=== PATIENT | female | born 1945 | race Caucasian/White ===

== ENCOUNTER 2018-09-10 06:43 | Outpatient (CLI) | payer MEDICARE ==
[2018-09-10 14:20] LABS: #Eosinphils 0.1 thou/uL (0.0-0.7); #Lymphocytes 1.7 thou/uL (1.20-3.40); #Monocytes 0.7 thou/uL (0.11-0.59); #Neutrophils 5.1 thou/uL (1.40-6.50); %Basophils 0.1 % (0.0-1.0); %Lymphocytes 22.4 % (21.0-51.0); %Neutrophils 67.5 % (42.0-75.0); Hemoglobin 14.3 g/dL (12.0-16.0); Mean Corpuscular HGB CONC 31.3 g/dL (32.0-36.0); Mean Corpuscular Hemoglobin 27.7 pg (27.0-31.0); Mean Corpuscular Volume 88.4 fL (78.0-98.0); Mean Platelet Volume 8.6 fL (7.4-10.4); Platelet Count 268 thou/uL (130-400); RBC Distribution Width 12.2 % (11.5-14.5); Red Blood Cell (RBC) Count 5.16 mill/uL (4.20-5.40); White Blood Cell (WBC) Count 7.5 thou/uL (4.8-10.8)
[2018-09-10 14:45] LABS: Anion Gap 11 mmol/L (10-20); BUN (Urea Nitrogen) 11 mg/dL (9.8-20.1); Calc. Creatinine Clearance 0 mL/min (70-130); Calcium 9.7 mg/dL (7.8-10.44); Carbon Dioxide 28 mmol/L (23-31); Chloride 106 mmol/L (98-107); Estimated GFR-MDRD 70; Glucose 85 mg/dL (83-110); Potassium 4.3 mmol/L (3.5-5.1); Sodium 141 mmol/L (136-145)
[2018-09-10 15:10] LABS: Prothrombin Time 13.5 SEC (12.0-14.7)
--- NOTE | 2018-09-11 21:04 | EKG ---
Test Reason : Blood Pressure : / mmHG Vent. Rate : 064 BPM Atrial Rate : 064 BPM P-R Int : 184 ms QRS Dur : 092 ms QT Int : 396 ms P-R-T Axes : 063 080 024 degrees QTc Int : 408 ms Normal sinus rhythm Normal ECG No previous ECGs available Confirmed by Xin GEE ([id number]) on 09/11/2018 9:04:43 PM Referred By: SAMANTHA Confirmed By:Xin GEE
== END 2018-09-10 06:44 | disposition home or self-care (01) ==
LOC: LABBT 06:43
PROVIDERS: ATTEND Orthopaedic Surgery
DX: Z01.818 Encounter for other preprocedural examination (principal); M16.11 Unilateral primary osteoarthritis, right hip
CPT/HCPCS: 80048; 85025; 85610; 87081; 93005; 93010

== ENCOUNTER 2018-09-10 13:30 | Inpatient (IN) | payer MEDICARE ==
[2018-09-10 12:53] VITALS: BMI 38.7
[2018-09-22] MEDS ORDERED: Tranexamic Acid 1,000 MG/10 ML VIAL ONE (06:10)
[2018-09-22] MEDS ORDERED: CEFAZOLIN 2 GM/50 ML BAG ONE (06:10)
[2018-09-22] MEDS ORDERED: Sodium Chloride 0.9% 100 ML ONE (06:11)
[2018-09-22] MEDS ORDERED: Midazolam HCl 2 mg/2 ml Vial ONE (06:22)
[2018-09-22] MEDS ORDERED: Fentanyl 100 MCG/2 ML VIAL ONE (06:22)
[2018-09-22] MEDS ORDERED: Vancomycin HCl 1.5 GM in Sodium Chloride 0.9% 250 ML 300 ML IVPB SCH (06:30)
[2018-09-22] MEDS ORDERED: Ondansetron PF 4 MG/2 ML Vial IVP PRN ×2 (06:58→08:45)
[2018-09-22] MEDS ORDERED: Acetaminophen 325 MG TAB PO PRN (06:58)
[2018-09-22] MEDS ORDERED: diphenhydrAMINE 25 MG CAP PO PRN ×2 (06:58→08:45)
[2018-09-22] MEDS ORDERED: HYDROcodone/Acetaminophen 10/325 mg Tablet PO PRN ×2 (06:58)
[2018-09-22] MEDS ORDERED: Zolpidem Tartrate 5 MG TAB PO PRN ×2 (06:58→08:45)
[2018-09-22] MEDS ORDERED: Promethazine HCl 25 MG/ML VIAL IM PRN ×3 (06:58→08:45)
[2018-09-22] MEDS ORDERED: Promethazine HCl 25 MG/ML VIAL SLOW IVP PRN (07:53)
[2018-09-22] MEDS ORDERED: Ondansetron HCl/PF 4 MG/2 ML Vial IVP PRN (07:53)
[2018-09-22] MEDS ORDERED: Acetaminophen 1,000 MG in Premix Bag 1 BAG IVPB PRN (08:43)
[2018-09-22] MEDS ORDERED: Naloxone HCl 0.4 mg/ml Vial IV PRN (08:45)
[2018-09-22] MEDS ORDERED: Hydrocerin (Eucerin) Cream 120 gm Jar TOP PRN (08:45)
[2018-09-22] MEDS ORDERED: Naloxone HCl 0.4 mg/ml Vial IVP PRN (08:45)
[2018-09-22] MEDS ORDERED: HYDROcodone/Acetaminophen 5/325 mg Tablet PO PRN (08:45)
[2018-09-22] MEDS ORDERED: Bupivacaine 0.25% 10 ML VIAL EPIDURAL PRN (08:45)
[2018-09-22] MEDS ORDERED: traMADol HCl 50 MG TAB PO PRN (08:45)
[2018-09-22] MEDS ORDERED: diphenhydrAMINE 50 MG/ML VIAL IVP PRN (08:45)
[2018-09-22] MEDS ORDERED: diphenhydrAMINE 50 MG/ML VIAL IM PRN (08:45)
[2018-09-22] MEDS ORDERED: Promethazine HCl 25 MG SUPP PR PRN (08:45)
[2018-09-22] MEDS ORDERED: Fentanyl/Bupivacaine 100 ML EPIDURAL ONE (08:47)
[2018-09-22] MEDS ORDERED: Enoxaparin Sodium 40 MG/0.4 ML SYRINGE SC SCH (09:00)
--- NOTE | 2018-09-22 10:16 | RAD ---
RIGHT HIP TWO VIEWS: History: Status post total hip replacement. AP and cross table lateral portable views are performed. FINDINGS: No evidence for dislocation or periprosthetic fracture. IMPRESSION: Unremarkable recent post total right hip replacement change. POS: MAGNO
[2018-09-22] MEDS: CEFAZOLIN 2 GM/50 ML BAG IVPB SCH ×2 (14:11→21:22)
[2018-09-22] MEDS: Ferrous Gluconate 324 MG TAB PO SCH ×2 (14:12→21:19)
[2018-09-22] MEDS: Furosemide 20 MG TAB PO SCH (14:12)
[2018-09-22] MEDS: Multivitamin W/ Minerals 1 TAB PO SCH (14:12)
[2018-09-22] MEDS: Sodium Chloride 0.9% 1,000 ML IV SCH ×3 (14:13→21:23)
[2018-09-22] MEDS: Cholecalciferol (Vitamin D3) 400 UNITS TAB PO SCH (14:13)
[2018-09-22] MEDS: CeleCOXIB 100 MG CAP PO SCH (14:13)
[2018-09-22] MEDS: Allopurinol 100 MG TAB PO SCH (14:13)
[2018-09-22] MEDS: Senokot S 8.6-50 MG TAB PO SCH ×2 (14:16→21:19)
--- NOTE | 2018-09-22 15:12 | OP ---
DATE OF PROCEDURE: 09/22/2018 PREOPERATIVE DIAGNOSIS: Right hip degenerative joint disease. POSTOPERATIVE DIAGNOSIS: Right hip degenerative joint disease. PROCEDURE PERFORMED: Right total hip arthroplasty using a [place] Accolate 3 stem, -2.5 ceramic 36 head and a 48 mm PSL cup with an X3 36 mm liner. FOREST PATHOLOGIST: No post production assistant. BLOOD LOSS: 200. SPECIMEN: None. DRAINS: None. COMPLICATION: None. PROCEDURE IN DETAIL: After informed consent was obtained in the preoperative holding area, the patient was taken to the operative suite where general anesthesia was induced. The patient was then positioned in the lateral decubitus position. The hip was then prepped and draped in usual sterile fashion. The patient received preoperative antibiotics. Prior to incision, time-out was called and all members of the surgical team agreed upon site, surgeon, and patient. After this, a longitudinal incision was made directly over the trochanter, noted by palpation extending 2 fingerbreadths above and below the trochanter. The deeper subcutaneous layer was undermined with Bovie electrocautery. The iliotibial band was encountered and incised sharply and the plane below this was developed bluntly. A Charnley retractor was placed to hold this opened. The lateral aspect of the trochanter and the abductor muscles were encountered and then reflected anteriorly off the trochanter using Bovie electrocautery. Once this was completed, the anterior capsule was then encountered and identified and copious capsulotomy was carried out, exposing the femoral neck and head. Dislocation maneuver was then performed and an in situ provisional neck cut was then made using the oscillating saw. Attention was then turned to acetabular preparation and sequential reaming was carried out up to the appropriate diameter. A trial was then malleted into place with good firm resistance and no pullout. The permanent acetabular shell was then malleted squarely into place, as was the appropriate liner. Once completed, the wound was copiously irrigated and attention was then turned to femoral preparation. Flexion and external rotation were performed of the exposed thigh and femoral elevators were then placed at the proximal aspect of the wound. Canal finder was used to establish the length of the canal and sequential reaming was carried out, followed by broaching. Once the appropriate stability was established with the trial broaches with flexion, extension and rotational stability, we did trial with neutral and 2 mm offset incremental necks. Once the appropriate size was decided upon, with good stability noted with flexion, extension, internal and external rotation and shuck being negative, we removed the femoral trial broach and malletted into place the permanent prosthesis with good firm fit, which was also stable to rotation. Again, the hip felt very stable to flexion, extension, internal and external rotation. Leg lengths appeared near anatomic clinically and we were quite happy with prosthesis placement. Copious irrigation was then carried out through the entirety of the wound. Primary closure of the abductors was accomplished with interrupted #2 Vicryl [id number] stitches and the IT band was then closed with interrupted #2 Vicryl, oversewn with a #2 running barbed Quill stitch. Subcutaneous fascia was closed with running barbed Quill stitch and a subcuticular Monocryl barbed Quill stitch was used for skin closure and augmented with skin cement. A sterile dressing was applied. The procedure was terminated without any complication. All counts were correct. The patient was awakened in the operative suite and taken to the recovery room in stable condition. Job ID: [id number]
[2018-09-22] MEDS ORDERED: Glycopyrrolate 0.2 MG/ML 5 ML SYRINGE ONE (16:30)
[2018-09-22] MEDS ORDERED: PROPOFOL 200 MG/20 ML VIAL ONE (16:30)
[2018-09-22] MEDS ORDERED: Ondansetron PF 4 MG/2 ML Vial ONE (16:30)
[2018-09-22] MEDS ORDERED: ePHEDrine/0.9% NaCl/PF SYRINGE 50 mg/10 ml ONE (16:30)
[2018-09-22] MEDS ORDERED: Lidocaine 1% PF 5 ML VIAL ONE (16:30)
[2018-09-22] MEDS ORDERED: PHENYLEPHRINE-NS 100 MCG/ML 10 ML SYRINGE ONE (16:30)
[2018-09-22] MEDS ORDERED: Rocuronium Bromide 10 MG/ML (10ML VIAL) ONE (16:30)
[2018-09-22] MEDS: HYDROcodone/Acetaminophen 5/325 mg Tablet PO PRN (17:17)
--- NOTE | 2018-09-22 20:04 | CON ---
DATE OF CONSULTATION: PRIMARY CARE PHYSICIAN: Dr. Crowley. PRIMARY TEAM: Orthopedics, Dr. Chavez. REASON FOR CONSULTATION: Medical management. HISTORY OF PRESENT ILLNESS: This is a 72-year-old white female with a known history of osteoarthritis of the hip and knees. She has presented today for a total right hip replacement, which was done this morning. She is doing well postoperatively, has some pain in the hip, but otherwise without complaint. PAST MEDICAL HISTORY: 1. Hypertension. 2. Hyperuricemia, uncertain if she has ever had a gout attack. 3. Gallstones. 4. Osteoarthritis. 5. Previous severe GI bleed on one of the old selective nonsteroidal anti-inflammatories, now told to never take aspirin products. PAST SURGICAL HISTORY: 1. Colonoscopy. 2. Right knee arthroscopy for torn meniscus. 3. Cataract surgeries in 2016 and 2017. SOCIAL HISTORY: No tobacco, alcohol, or illicit drug use. She is . FAMILY HISTORY: Father and sister of lung cancer and were smokers. Mother had rheumatoid arthritis and diabetes mellitus. ALLERGIES: ASPIRIN. CURRENT MEDICATIONS: 1. Allopurinol 100 mg daily. 2. Celebrex 100 mg daily. 3. Vitamin D3 of 400 units daily. 4. Furosemide 20 mg daily. 5. Omeprazole 20 mg daily. 6. Verapamil extended release 240 mg at night. REVIEW OF SYSTEMS: CONSTITUTIONAL: No fevers. No chills. No weight changes. EYES: No double vision or blurred vision. ENT: No congestion drainage or sore throat. She does have some chronic feeling of a lump in her throat, which is being worked up. Has had a normal EGD for that. She is going to see ENT about it. CARDIOVASCULAR: No chest pain. No palpitations or racing heart. PULMONARY: No coughing, wheezing, or shortness of breath. GASTROINTESTINAL: No abdominal pain. No nausea or vomiting. No diarrhea or constipation. GENITOURINARY: No dysuria or hematuria. MUSCULOSKELETAL: See HPI. SKIN: No rashes or other lesions. NEUROLOGIC: No numbness, tingling, or focal weakness. PHYSICAL EXAMINATION: VITAL SIGNS: Blood pressure 95/61, pulse 67, temperature 97.4, respirations 16, and O2 saturation 98% on room air. GENERAL: This is a well-developed, well-nourished, obese white female, in no acute distress. HEENT: Pupils equal, round, and reactive to light. Oropharynx clear without lesions, erythema, or exudate. NECK: Supple. No lymphadenopathy. No thyroid nodules or enlargement. No JVD. HEART: Regular rate and rhythm. No murmurs, rubs, or gallops. LUNGS: Clear to auscultation bilaterally. No wheezes, crackles, or rhonchi. ABDOMEN: Soft and nontender to palpation. Normoactive bowel sounds. No hepatosplenomegaly or other masses. EXTREMITIES: The patient has a postsurgical dressing on the right hip that is clean, dry, and intact. She is able to move all extremities. No clubbing, cyanosis, or edema. She has good peripheral pulses. SKIN: No rashes or other lesions noted. NEUROLOGIC: She has intact strength and sensation in all extremities and no facial droop. LABORATORY DATA: Preoperative labs from last week show normal CBC, normal coagulation profile, and a normal basic metabolic panel. She also had an electrocardiogram done last week, which showed normal sinus rhythm without any significant ST-segment changes or other abnormalities. ASSESSMENT: 1. Right hip arthritis, status post total right hip arthroplasty. 2. Hypertension, currently low normal blood pressure likely postoperative. We will resume the patient's normal blood pressure medicines as soon as she does not stay very low like this. 3. Hyperuricemia/gout. Resume the patient's allopurinol. 4. History of gastrointestinal bleed in the past. We will resume the patient's daily proton pump inhibitor. 5. Deep venous thrombosis prophylaxis. The patient is on SCDs while in bed. 6. Code status. I did discuss this with the patient. She is a full code. Should she be incapacitated, her medical decision maker is her . His name is Renny Barnett. Job ID: [id number]
[2018-09-23] MEDS: Fentanyl/Bupivacaine 100 ML EPIDURAL SCH ×2 (03:03→18:20)
[2018-09-23] MEDS: HYDROcodone/Acetaminophen 5/325 mg Tablet PO PRN ×3 (03:16→15:41)
[2018-09-23] MEDS: traMADol HCl 50 MG TAB PO PRN (03:48)
[2018-09-23 06:20] LABS: Mean Corpuscular HGB CONC 32.7 g/dL (32.0-36.0); Mean Corpuscular Hemoglobin 29.3 pg (27.0-31.0); Mean Corpuscular Volume 89.6 fL (78.0-98.0); Mean Platelet Volume 8.3 fL (7.4-10.4); Platelet Count 198 thou/uL (130-400); RBC Distribution Width 11.9 % (11.5-14.5); White Blood Cell (WBC) Count 7.8 thou/uL (4.8-10.8)
[2018-09-23] MEDS: Multivitamin W/ Minerals 1 TAB PO SCH (08:14)
[2018-09-23] MEDS: Ferrous Gluconate 324 MG TAB PO SCH ×2 (08:14→20:06)
[2018-09-23] MEDS: Cholecalciferol (Vitamin D3) 400 UNITS TAB PO SCH (08:14)
[2018-09-23] MEDS: Allopurinol 100 MG TAB PO SCH (08:14)
[2018-09-23] MEDS: CeleCOXIB 100 MG CAP PO SCH (08:15)
[2018-09-23] MEDS: Furosemide 20 MG TAB PO SCH (08:15)
[2018-09-23] MEDS: Senokot S 8.6-50 MG TAB PO SCH ×2 (08:15→20:06)
[2018-09-23] MEDS: Enoxaparin Sodium 40 MG/0.4 ML SYRINGE SC SCH (10:00)
--- NOTE | 2018-09-23 10:36 | PDOC.PN ---
- Subjective Encounter Start Date: 09/23/18 Encounter Start Time: 07:45 Subjective: no sob or chest pain -: is sitting in chair -: amb yesterday with PT around 80ft - Objective Resuscitation Status - Order Detail: 09/22/18 12:21 Resuscitation Status Routine Resuscitation Status: FULL: Full Resuscitation Discussed with: Patient RANI Reviewed: Yes Vital Signs & Weight: Vital Signs (12 hours) Temp Pulse Resp BP BP Pulse Ox 09/23/18 07:35 98.7 F 97 18 94/60 93 L 09/23/18 04:00 99.1 F 96 18 115/68 97 09/23/18 00:00 98.9 F 99 18 125/68 97 Weight Weight 205 lb I&O: 09/22/18 09/23/18 09/24/18 06:59 06:59 06:59 Intake Total 2802 Output Total 1350 Balance 1452 Result Diagrams: 09/23/18 05:47 Phys Exam - Physical Examination HEENT: PERRLA, moist MMs Neck: no JVD, supple Respiratory: no wheezing, no rales Cardiovascular: RRR, no significant murmur Gastrointestinal: soft, non-tender, positive bowel sounds Musculoskeletal: no edema, pulses present Neurological: non-focal, moves all 4 limbs Psychiatric: normal affect, A&O x 3 Dx/Plan (1) Status post total hip replacement, right Code(s): Z96.641 - PRESENCE OF RIGHT ARTIFICIAL HIP JOINT Status: Acute (2) HTN (hypertension) Code(s): I10 - ESSENTIAL (PRIMARY) HYPERTENSION Status: Chronic Qualifiers: Hypertension type: essential hypertension Qualified Code(s): I10 - Essential (primary) hypertension (3) Obesity (BMI 30-39.9) Code(s): E66.9 - OBESITY, UNSPECIFIED Status: Chronic (4) Osteoarthritis Code(s): M19.90 - UNSPECIFIED OSTEOARTHRITIS, UNSPECIFIED SITE Status: Chronic Qualifiers: Osteoarthritis location: unspecified site - Plan is on verapamil, lasix -: allopurinol for ?hyperuricemia/gout -: nerve block, narcotics per ortho adv -: is amb well and participating well with PT post op -: will f/u * . Review of Systems - Medications/Allergies Allergies/Adverse Reactions: Allergies Allergy/AdvReac Type Severity Reaction Status Date / Time aspirin Allergy Intermediate STOMACH Verified 09/10/18 12:50 ULCERS Medications: Current Medications Acetaminophen (Tylenol) 650 mg PO Q4H PRN PRN Reason: Headache/Fever or Pain Hydrocodone Bitart/Acetaminophen ([place] 5/325) 1 tab PO Q4H PRN PRN Reason: Mild Pain 0-3 Hydrocodone Bitart/Acetaminophen ([place] 5/325) 2 tab PO Q4H PRN PRN Reason: For Moderate Pain 4-6 Last Admin: 09/23/18 08:15 Dose: 2 tab Allopurinol (Zyloprim) 100 mg PO DAILY [facility] Last Admin: 09/23/18 08:14 Dose: 100 mg Celecoxib (Celebrex) 100 mg PO DAILY [facility] Last Admin: 09/23/18 08:15 Dose: 100 mg Cholecalciferol (Vitamin D) 400 units PO DAILY [facility] Last Admin: 09/23/18 08:14 Dose: 400 units Diphenhydramine HCl (Benadryl) 25 mg PO Q3H PRN PRN Reason: Itching Diphenhydramine HCl (Benadryl) 25 mg IM Q3H PRN PRN Reason: Itching Diphenhydramine HCl (Benadryl) 25 mg IVP Q3H PRN PRN Reason: Itching Emollient Cream (Hydrocerin Cream) 0 gm TOP PRN PRN PRN Reason: Itching Enoxaparin Sodium (Lovenox) 40 mg SC 0900 [facility] Enoxaparin Sodium (Lovenox) 40 mg SC 2100 [facility] Ferrous Gluconate (Fergon) 324 mg PO BID [facility] Last Admin: 09/23/18 08:14 Dose: 324 mg Furosemide (Lasix) 20 mg PO DAILY [facility] Last Admin: 09/23/18 08:15 Dose: 20 mg Sodium Chloride (Normal Saline 0.9%) 1,000 mls @ 100 mls/hr IV .Q10H [facility] Last Admin: 09/22/18 21:23 Dose: 1,000 mls Fentanyl Citrate (Fentanyl/Bupivacaine) 100 mls @ 0 mls/hr EPIDURAL INF [facility] Last Admin: 09/23/18 03:03 Dose: 100 mls Iron/Minerals/Multivitamins (Theragran M) 1 tab PO DAILY [facility] Last Admin: 09/23/18 08:14 Dose: 1 tab Miscellaneous Information (Communication Order-Pharmacy) 1 each FS ASDIR [facility] Naloxone HCl (Narcan) 0.2 mg IV Q5MIN PRN PRN Reason: RR <=8 OR OBTUNDED/UNAROUSABLE Naloxone HCl (Narcan) 0.1 mg IVP Q15MIN PRN PRN Reason: URINARY RETENTION Ondansetron HCl (Zofran) 4 mg IVP Q6H PRN PRN Reason: Nausea/Vomiting Pantoprazole Sodium (Protonix) 40 mg PO DAILY [facility] Last Admin: 09/23/18 08:15 Dose: 40 mg Promethazine HCl (Phenergan) 12.5 mg IM Q4H PRN PRN Reason: Nausea Promethazine HCl (Phenergan Suppository) 25 mg IN Q4H PRN PRN Reason: Nausea/Vomiting Senna/Docusate Sodium (Senokot S) 2 tab PO BID [facility] Last Admin: 09/23/18 08:15 Dose: 2 tab Sodium Chloride (Flush - Normal Saline) 10 ml IVF PRN PRN PRN Reason: Saline Flush Tramadol HCl (Ultram) 50 mg PO Q6H PRN PRN Reason: Mild Pain 1-3 Tramadol HCl (Ultram) 100 mg PO Q6H PRN PRN Reason: Moderate Pain 4-6 Last Admin: 09/23/18 03:48 Dose: 100 mg Verapamil HCl (Calan Sr) 240 mg PO HS [facility] Last Admin: 09/22/18 21:22 Dose: 240 mg Zolpidem Tartrate (Ambien) 5 mg PO HSPRN PRN PRN Reason: Insomnia
[2018-09-23] MEDS: Sodium Chloride 0.9% 1,000 ML IV SCH ×2 (15:50→22:32)
[2018-09-24] MEDS: HYDROcodone/Acetaminophen 5/325 mg Tablet PO PRN ×3 (02:00→15:04)
[2018-09-24 06:58] LABS: Hemoglobin 11.3 g/dL (12.0-16.0); Mean Corpuscular HGB CONC 32.1 g/dL (32.0-36.0); Mean Corpuscular Hemoglobin 29.3 pg (27.0-31.0); Mean Corpuscular Volume 91.5 fL (78.0-98.0); Mean Platelet Volume 8.6 fL (7.4-10.4); Platelet Count 193 thou/uL (130-400); RBC Distribution Width 11.8 % (11.5-14.5); Red Blood Cell (RBC) Count 3.84 mill/uL (4.20-5.40); White Blood Cell (WBC) Count 10.2 thou/uL (4.8-10.8)
[2018-09-24] MEDS: Enoxaparin Sodium 40 MG/0.4 ML SYRINGE SC SCH (09:18)
[2018-09-24] MEDS: Senokot S 8.6-50 MG TAB PO SCH (09:19)
[2018-09-24] MEDS: CeleCOXIB 100 MG CAP PO SCH (09:19)
[2018-09-24] MEDS: Cholecalciferol (Vitamin D3) 400 UNITS TAB PO SCH (09:19)
[2018-09-24] MEDS: Multivitamin W/ Minerals 1 TAB PO SCH (09:19)
[2018-09-24] MEDS: Allopurinol 100 MG TAB PO SCH (09:19)
[2018-09-24] MEDS: Furosemide 20 MG TAB PO SCH (09:20)
[2018-09-24] MEDS: Ferrous Gluconate 324 MG TAB PO SCH (09:20)
[2018-09-24] MEDS: Sodium Chloride 0.9% 1,000 ML IV SCH (09:27)
--- NOTE | 2018-09-24 11:37 | PDOC.PN ---
- Subjective Encounter Start Date: 09/24/18 Encounter Start Time: 09:30 Subjective: feels better -: is amb in hallway - Objective Resuscitation Status - Order Detail: 09/22/18 12:21 Resuscitation Status Routine Resuscitation Status: FULL: Full Resuscitation Discussed with: Nhi SARAVIA Reviewed: Yes Vital Signs & Weight: Vital Signs (12 hours) Temp Pulse Resp BP Pulse Ox 09/24/18 08:38 98.1 F 89 18 100/61 93 L 09/24/18 07:37 95 09/24/18 04:32 97.9 F 88 19 113/73 95 09/24/18 00:20 98.1 F 89 18 108/66 95 Weight Admit Weight 205 lb Weight 205 lb I&O: 09/23/18 09/24/18 09/25/18 06:59 06:59 06:59 Intake Total 2802 1410 Output Total 1350 1550 Balance 1452 -140 Result Diagrams: 09/24/18 06:19 Phys Exam - Physical Examination HEENT: PERRLA, moist MMs Neck: no nodes, no JVD Respiratory: no wheezing, no rales Cardiovascular: RRR, no significant murmur Gastrointestinal: soft, non-tender, positive bowel sounds Musculoskeletal: no edema, pulses present Neurological: non-focal, moves all 4 limbs Psychiatric: normal affect, A&O x 3 Dx/Plan (1) Status post total hip replacement, right Code(s): Z96.641 - PRESENCE OF RIGHT ARTIFICIAL HIP JOINT Status: Acute (2) HTN (hypertension) Code(s): I10 - ESSENTIAL (PRIMARY) HYPERTENSION Status: Chronic Qualifiers: Hypertension type: essential hypertension Qualified Code(s): I10 - Essential (primary) hypertension (3) Obesity (BMI 30-39.9) Code(s): E66.9 - OBESITY, UNSPECIFIED Status: Chronic (4) Osteoarthritis Code(s): M19.90 - UNSPECIFIED OSTEOARTHRITIS, UNSPECIFIED SITE Status: Chronic Qualifiers: Osteoarthritis location: unspecified site - Plan hemostable -: dc plan per ortho adv -: continue home meds -: lovenox for dvt prophylaxis * .
[2018-09-24 12:02] VITALS: BP 114/74; TEMP 98.4
[2018-09-24] MEDS: traMADol HCl 50 MG TAB PO PRN (12:43)
[2018-09-24] MEDS ORDERED: Enoxaparin Sodium 40 MG/0.4 ML SYRINGE SC SCH (21:00)
--- NOTE | 2018-09-25 09:08 | DIS ---
DATE OF ADMISSION: 09/22/2018 DATE OF DISCHARGE: 09/24/2018 TRANSFER OF CARE NOTE DISCHARGE DISPOSITION: To home. PRIMARY DISCHARGE DIAGNOSIS: The patient is status post right total hip replacement. SECONDARY DISCHARGE DIAGNOSES: 1. Hypertension. 2. Osteoarthritis. 3. Obesity. PROCEDURES DONE DURING HOSPITALIZATION: The patient has had elective right total hip arthroplasty done by Dr. Chavez on 09/22/2018. Please see operative note by him. H and H 11 and 35, platelet count is 193. DISCHARGE MEDICATIONS: 1. Allopurinol 100 mg p.o. daily. 2. Celecoxib 100 mg p.o. daily. 3. Vitamin D3 400 units p.o. daily. 4. Lasix 20 mg p.o. daily. 5. Omeprazole 20 mg daily. 6. Verapamil extended release 240 mg p.o. at bedtime. 7. Lovenox 40 mg subcu daily for post total hip replacement DVT prophylaxis. 8. [place] p.r.n. for pain. ALLERGIES: ALLERGIC TO ASPIRIN. BRIEF COURSE DURING HOSPITALIZATION: The patient initially got admitted for an elective right total hip arthroplasty by Dr. Chavez. This was done on the . Postop, [facility] physicians were consulted for comanagement of medical issues. She has remained hemodynamically stable during her stay here. The patient has ambulated well post surgery. She has been cleared for discharge by Dr. Chavez. She needs to follow up with Dr. Chavez as advised and primary care physician in 1 week. Please see a [id number] documentation for the day of discharge on [employer]. Job ID: [id number] MTDD
== END 2018-09-24 15:00 | disposition home or self-care (01) | DRG 470 ==
LOC: SJJU 09-22 05:31 → SURG B 09-22 09:41
PROVIDERS: ADMIT Orthopaedic Surgery; ATTEND Orthopaedic Surgery
PROC: 0SR904A Replacement of Right Hip Joint with Ceramic on Polyethylene Synthetic Substitute, Uncemented, Open Approach (ICD-10-PCS; principal; 2018-09-22)
DX: M16.11 Unilateral primary osteoarthritis, right hip (principal); I10 Essential (primary) hypertension; E66.9 Obesity, unspecified; Z68.38 Body mass index [BMI] 38.0-38.9, adult; M10.9 Gout, unspecified
CPT/HCPCS: 36415; 85027; J1650; J2001; J2250; J2405; J2704; J3010; J3370; J7050

== ENCOUNTER 2022-05-02 14:15 | Outpatient (CLI) | payer MEDICARE ==
[2022-05-02 15:07] LABS: #Eosinphils 0.1 10x3/uL (0.0-0.5); #Monocytes 0.7 10x3/uL (0.0-1.1); #Neutrophils 4.7 10x3/uL (1.5-8.4); %Basophils 0.4 % (0.0-2.0); %Eosinophils 1.4 % (0.0-6.0); %Lymphocytes 20.9 % (18.0-47.0); %Monocytes 10.6 % (0.0-10.0); %Neutrophils 66.6 % (40.0-75.0); Hemoglobin 12.7 g/dL (12.0-15.5); Mean Corpuscular Hemoglobin 25.7 pg (27.0-33.0); Mean Corpuscular Volume 82.8 fl (81.6-98.3); Mean Platelet Volume 10.5 fl (7.4-10.4); Platelet Count 314 10x3/uL (150-450); RBC Distribution Width 14.3 % (11.5-14.5); Red Blood Cell (RBC) Count 4.95 10x6/uL (3.90-5.03)
[2022-05-02 15:27] LABS: Prothrombin Time 10.4 sec (9.5-12.1)
[2022-05-02 15:30] LABS: Anion Gap 13 mmol/L (10-20); BUN (Urea Nitrogen) 14 mg/dL (9.8-20.1); Calc. Creatinine Clearance 0 mL/min (70-130); Calcium 8.8 mg/dL (7.8-10.44); Carbon Dioxide 26 mmol/L (23-31); Chloride 108 mmol/L (98-107); Estimated GFR 39; Glucose 114 mg/dL (83-110); Potassium 4.2 mmol/L (3.5-5.1); Sodium 143 mmol/L (136-145)
== END 2022-05-02 14:16 | disposition home or self-care (01) ==
LOC: LABBT 14:15
PROVIDERS: ATTEND Orthopaedic Surgery
DX: Z01.818 Encounter for other preprocedural examination (principal); M17.12 Unilateral primary osteoarthritis, left knee; Z20.822 Contact with and (suspected) exposure to COVID-19
CPT/HCPCS: 80048; 85025; 85610; 87081; 87811; 93005; 93010

== ENCOUNTER 2022-05-07 08:15 | Observation (INO) | payer MEDICARE ==
[2022-05-03 15:23] VITALS: BMI 37.3
[2022-05-07] MEDS ORDERED: Tranexamic Acid 1,000 MG/10 ML VIAL ONE (09:14)
[2022-05-07] MEDS ORDERED: Sodium Chloride 0.9% 100 ML ONE ×2 (09:14→10:09)
[2022-05-07] MEDS ORDERED: Vancomycin 1.5 GRAM/300 ML BAG 1.5 GM in Premix Bag 1 BAG IVPB SCH (09:30)
[2022-05-07] MEDS ORDERED: fentaNYL Citrate/PF 100 MCG/2 ML SYRINGE ONE (09:43)
[2022-05-07] MEDS ORDERED: Fentanyl 100 MCG/2 ML VIAL ONE ×2 (09:48→12:21)
[2022-05-07] MEDS ORDERED: Midazolam HCl 2 mg/2 ml Vial ONE (09:48)
[2022-05-07] MEDS ORDERED: CEFAZOLIN 2 GM VIAL ONE (10:09)
[2022-05-07] MEDS ORDERED: Bupivacaine HCl 0.5%/Epinephrine 1:200,000/PF 30 ml Vial ONE ×2 (10:10→10:11)
[2022-05-07] MEDS ORDERED: PROPOFOL 200 MG/20 ML VIAL ONE (10:11)
[2022-05-07] MEDS ORDERED: Ondansetron PF 4 MG/2 ML Vial ONE (10:11)
[2022-05-07] MEDS ORDERED: Vancomycin (BATCH) 1.5 GRAM/300 ML BAG ONE (10:11)
[2022-05-07] MEDS ORDERED: Lidocaine 1% MPF 2 ML VIAL ONE (10:11)
[2022-05-07] MEDS ORDERED: Dexamethasone 20 MG/5 ML VIAL ONE (10:11)
[2022-05-07] MEDS ORDERED: Fentanyl 100 MCG/2 ML VIAL IV PRN (10:17)
[2022-05-07] MEDS ORDERED: Ropivacaine 0.2% 550 ML 550 ML NERVE BLCK SCH (10:30)
[2022-05-07] MEDS ORDERED: HYDROcodone/Acetaminophen 10/325 mg Tablet PO PRN (10:30)
[2022-05-07] MEDS ORDERED: traMADol HCl 50 MG TAB PO PRN ×2 (10:30)
[2022-05-07] MEDS ORDERED: Zolpidem Tartrate 5 MG TAB PO PRN ×2 (10:30→10:43)
[2022-05-07] MEDS ORDERED: Promethazine HCl 25 MG/ML VIAL IM PRN ×3 (10:30→12:03)
[2022-05-07] MEDS ORDERED: Ondansetron PF 4 MG/2 ML Vial IVP PRN ×2 (10:30→10:43)
[2022-05-07] MEDS ORDERED: diphenhydrAMINE 25 MG CAP PO PRN (10:43)
[2022-05-07] MEDS ORDERED: Acetaminophen 325 MG TAB PO PRN (10:43)
[2022-05-07] MEDS ORDERED: Promethazine HCl 25 MG/ML VIAL IVPB PRN (12:03)
[2022-05-07] MEDS ORDERED: Ondansetron HCl/PF 4 MG/2 ML Vial IVP PRN (12:03)
[2022-05-07] MEDS ORDERED: HYDROmorphone 2 MG/ML VIAL SLOW IVP PRN (12:03)
[2022-05-07] MEDS ORDERED: Meperidine HCl/PF 25 MG/ML VIAL SLOW IVP PRN (12:03)
[2022-05-07] MEDS ORDERED: Meperidine HCl/PF 25 MG/ML VIAL ONE (12:10)
[2022-05-07] MEDS ORDERED: Ketorolac Tromethamine 30 MG/ML VIAL IVP SCH ×2 (14:00)
[2022-05-07] MEDS ORDERED: Losartan 25 MG TAB PO SCH (15:30)
[2022-05-07] MEDS: CEFAZOLIN 2 GM in Sodium Chloride 0.9% 100 ML IVPB SCH (18:50)
[2022-05-07] MEDS: Sodium Chloride 0.9% 1,000 ML IV SCH ×2 (19:40→20:14)
[2022-05-07] MEDS: Senokot S 8.6-50 MG TAB PO SCH (20:12)
[2022-05-07] MEDS: Aspirin 81 mg Enteric Coated Tablet PO SCH (20:14)
[2022-05-07] MEDS ORDERED: Ferrous Gluconate 324 MG TAB PO SCH (21:00)
[2022-05-07] MEDS: HYDROcodone/Acetaminophen 10/325 mg Tablet PO PRN (21:17)
[2022-05-08] MEDS: CEFAZOLIN 2 GM in Sodium Chloride 0.9% 100 ML IVPB SCH (03:16)
[2022-05-08] MEDS: HYDROcodone/Acetaminophen 10/325 mg Tablet PO PRN ×2 (03:19→08:43)
[2022-05-08] MEDS: Sodium Chloride 0.9% 1,000 ML IV SCH (05:07)
[2022-05-08 06:01] LABS: Hemoglobin 11.7 g/dL (12.0-16.0); Mean Corpuscular HGB CONC 31.6 g/dL (32.0-36.0); Mean Corpuscular Hemoglobin 26.9 pg (27.0-31.0); Mean Corpuscular Volume 85.1 fL (78.0-98.0); Mean Platelet Volume 8.8 fL (7.4-10.4); Platelet Count 239 thou/uL (130-400); RBC Distribution Width 13.1 % (11.5-14.5); Red Blood Cell (RBC) Count 4.35 mill/uL (4.20-5.40); White Blood Cell (WBC) Count 11.1 thou/uL (4.8-10.8)
[2022-05-08 06:03] VITALS: TEMP 98.3
[2022-05-08] MEDS: Aspirin 81 mg Enteric Coated Tablet PO SCH (08:43)
[2022-05-08] MEDS: Senokot S 8.6-50 MG TAB PO SCH (08:44)
[2022-05-08] MEDS ORDERED: Allopurinol 100 MG TAB PO SCH (09:00)
[2022-05-08] MEDS ORDERED: Multivitamin W/ Minerals 1 TAB PO SCH (09:00)
[2022-05-08] MEDS ORDERED: Cholecalciferol (Vitamin D3) 400 UNITS TAB PO SCH (09:00)
[2022-05-08] MEDS ORDERED: Losartan 25 MG TAB PO SCH (09:00)
[2022-05-08] MEDS ORDERED: Furosemide 20 MG TAB PO SCH (09:00)
[2022-05-08 12:36] VITALS: BP 115/73
== END 2022-05-08 13:20 | disposition home or self-care (01) ==
LOC: SDC 08:15 → SURG A 13:09
PROVIDERS: ADMIT Orthopaedic Surgery; ATTEND Orthopaedic Surgery
PROC: 0SRD0J9 Replacement of Left Knee Joint with Synthetic Substitute, Cemented, Open Approach (ICD-10-PCS; principal; 2022-05-07)
PROC: 8E0YXBZ Computer Assisted Procedure of Lower Extremity (ICD-10-PCS; 2022-05-07)
PROC: 3E0T3BZ Introduction of Anesthetic Agent into Peripheral Nerves and Plexi, Percutaneous Approach (ICD-10-PCS; 2022-05-07)
DX: M17.12 Unilateral primary osteoarthritis, left knee (principal); M10.9 Gout, unspecified; I10 Essential (primary) hypertension; Z79.899 Other long term (current) drug therapy; Z88.8 Allergy status to other drugs, medicaments and biological substances; Z96.641 Presence of right artificial hip joint
CPT/HCPCS: 20985; 27447; 64448; 73560; 85027; 97110 ×2; 97116 ×2; 97530 ×2; A4306; C1713; C1776; G0378; J3370; 36415; J0690; J1100; J2175; J2250; J2405; J2704; J2795; J3010; J3490